=== PATIENT | female | born 1965 | race Caucasian/White ===

== ENCOUNTER → 2016-06-15 | Outpatient (CLI) | payer BC ==
--- NOTE | 2016-06-15 16:36 | Diagnostic Imaging Report ---
PROCEDURE: US Thyroid. TECHNIQUE: Multiple real-time grayscale images were obtained of the thyroid in various projections. INDICATION: Followup left thyroid nodule. COMPARISON: 01/21/2015. DISCUSSION: The thyroid gland is diffusely atrophied. The right thyroid measures 3.1 x 0.8 x 1.0 cm. The left thyroid measures 3.2 x 0.9 x 0.9 cm. A 7 mm ill-defined hyperechoic nodule within the left thyroid gland inferiorly is stable. Given long-term stability, nodule is likely benign. No new nodule is identified. No abnormal adjacent lymph nodes are identified. IMPRESSION: 1. Atrophied thyroid gland appears stable. Subcentimeter left thyroid nodule is also stable and therefore likely benign. Dictated by: Dictated on workstation # [id number]
== END ==
LOC: RAD 15:33
PROVIDERS: ATTEND Nurse Practitioner Family
DX: E04.1 Nontoxic single thyroid nodule (principal)
CPT/HCPCS: 76536

== ENCOUNTER → 2020-01-17 | Outpatient (CLI) | payer BC ==
--- NOTE | 2020-01-17 09:38 | Diagnostic Imaging Report ---
INDICATION: Liver disease. PROCEDURE: Ultrasound abdomen complete. TECHNIQUE: Multiple real-time grayscale images were obtained of the abdomen in various projections. The liver is enlarged at 20 cm. There is diffuse increased echogenicity throughout the liver consistent with hepatic steatosis. No discrete liver mass is detected. Portal vein is patent and shows normal direction of flow. Gallbladder is surgically absent. There is no biliary ductal dilatation. Pancreas is unremarkable. The spleen is normal in size at 11.2 cm. Aorta is nonaneurysmal. IVC is patent. The kidneys are without calculi or hydronephrosis. There is no ascites. IMPRESSION: 1. Hepatomegaly and hepatic steatosis. 2. Status post cholecystectomy. 3. No acute feature is detected. Dictated by: Dictated on workstation # [id number]
--- NOTE | 2020-01-17 09:41 | Diagnostic Imaging Report ---
PROCEDURE: US Thyroid. TECHNIQUE: Multiple real-time grayscale images were obtained of the thyroid in various projections. INDICATION: Thyroid nodule, follow-up. CORRELATION is made with prior thyroid ultrasound from 06/15/2016. FINDINGS: Right lobe of the thyroid measures 3.5 x 1.3 x 0.9 cm and the left lobe measures 3.3 x 0.9 x 0.8 cm. Isthmus is 3 mm in thickness. Thyroid is heterogeneous. There is a slightly hyperechoic nodule lower pole left lobe measuring 6 mm in size, stable. No other nodules are identified. IMPRESSION: Subcentimeter nodule, left lobe, stable when compared with examination from 06/15/2016. No dominant thyroid mass is detected. Dictated by: Dictated on workstation # [id number]
== END ==
LOC: RAD 07:54
PROVIDERS: ATTEND Nurse Practitioner Family
DX: E04.1 Nontoxic single thyroid nodule (principal); E05.30 Thyrotoxicosis from ectopic thyroid tissue without thyrotoxic crisis or storm; K76.0 Fatty (change of) liver, not elsewhere classified; Z90.49 Acquired absence of other specified parts of digestive tract
CPT/HCPCS: 76536; 76700

== ENCOUNTER → 2020-05-27 | Outpatient (CLI) | payer BC ==
--- NOTE | 2020-05-27 09:38 | Diagnostic Imaging Report ---
CLINICAL INDICATION: Patient is having bilateral arm and hand numbness. EXAM: MRI of the brain performed without IV contrast. Sequences include axial DWI, ADC map, axial T2, axial FLAIR, axial T1, axial gradient echo, and sagittal T1. COMPARISON: None. FINDINGS: There is no evidence of acute cerebral infarct, intracranial hemorrhage, or gross mass effect. The brain parenchymal volume appears appropriate for patient's age. There is a focal area of high T2 signal white matter change involving the right cerebral hemisphere which may related to chronic small vessel ischemic disease. There is normal lao-white matter distinction. There is no significant midline shift or herniation. The [place] vascular structures show no gross abnormality as visualized. The pituitary gland, sella, and suprasellar regions are unremarkable as visualized. There is no evidence of hydrocephalus. The basal cisterns are unremarkable. The skull, extracranial soft tissue, and orbits are unremarkable. The paranasal sinuses are unremarkable. Temporal bones show no significant abnormality. IMPRESSION: Unremarkable MRI of the brain with age-related brain parenchymal changes. Dictated by: Dictated on workstation # [id number]
--- NOTE | 2020-05-27 09:53 | Diagnostic Imaging Report ---
CLINICAL INDICATION: Patient is having bilateral arm and hand numbness. EXAM: MRI of the cervical spine performed without IV contrast. Sequences include sagittal T1, sagittal T2, sagittal stir, and axial T2. COMPARISON: None. FINDINGS: There is no acute cervical spine fracture or dislocation. There are Modic type I degenerative signal changes anteriorly at the C6-C7 level. There are degenerative spurs seen throughout the cervical spine and facet arthropathy. There is no significant paraspinal soft tissue abnormality. The visualized portions of the posterior fossa show no significant abnormality. There is localized encroachment upon the cervical cord seen at the C4-C5 disk space region due to disc herniation. There is no definite cord signal abnormality seen. C1-C2: There are degenerative spurs involving the atlantoodontoid interval anteriorly. There is no significant central canal narrowing. C2-C3: There is mild bilateral facet arthropathy. There is no significant central spinal canal or neuroforaminal narrowing. C3-C4: There is diffuse disk bulge with a small left paracentral disk protrusion/herniation component. There is at least mild to moderate right neuroforaminal narrowing. Mild to moderate central canal stenosis. There is mild left neuroforaminal narrowing. C4-C5: There is a diffuse disk bulge with a moderate sized left paracentral disk extrusion/herniation. There is mild to moderate loss of disk space height. There is severe central canal stenosis with significant encroachment upon the cervical cord. There is severe right neuroforaminal narrowing and at least moderate left neuroforaminal narrowing. C5-C6: There is a diffuse disk bulge with superimposed left paracentral/subarticular disk spur. There is moderate central canal stenosis. There is moderate left neuroforaminal narrowing and no significant right neuroforaminal narrowing. C6-C7: There is a diffuse disk bulge with superimposed right paracentral posterior disk herniation. There is mild to moderate central canal stenosis. There is no significant right neuroforaminal narrowing. There is mild to moderate left neuroforaminal narrowing. C7-T1: There are small bilateral perineural cysts seen with the largest one measuring 8 mm on the right. There is no significant central spinal canal or neuroforaminal narrowing. T1-T2: There is a diffuse disk bulge with uncinate spurs and posterior disk herniation. There is mild to moderate central canal stenosis. There is at least moderate right neuroforaminal narrowing and severe left neuroforaminal narrowing. T2-T3: There is a diffuse disk bulge with superimposed right paracentral disk herniation with moderate central canal stenosis. There is mild left neuroforaminal narrowing and moderate to severe right neuroforaminal narrowing. IMPRESSION: 1: There is severe multilevel cervical and visualized upper thoracic spine degenerative disease with diffuse disk bulges, disk herniations, and facet arthropathy. 2: There is a C4-C5 diffuse disk bulge with moderate sized left paracentral disk herniation which causes severe central canal stenosis and encroachment with deformity upon the cervical cord. There is no definite cord signal abnormality. There is severe right neuroforaminal narrowing and at least moderate left neuroforaminal narrowing. 3: There is moderate central canal stenosis at the C5-C6 level due to diffuse disk bulge and left paracentral/subarticular disk spur and facet arthropathy. 4: The remainder of the cervical spine degenerative changes are described above. Dictated by: Dictated on workstation # [id number]
== END ==
LOC: RAD 08:30
PROVIDERS: ATTEND Nurse Practitioner Family
DX: M47.812 Spondylosis without myelopathy or radiculopathy, cervical region (principal); M47.814 Spondylosis without myelopathy or radiculopathy, thoracic region; M50.221 Other cervical disc displacement at C4-C5 level; M51.24 Other intervertebral disc displacement, thoracic region; M51.34 Other intervertebral disc degeneration, thoracic region; M48.02 Spinal stenosis, cervical region; M48.04 Spinal stenosis, thoracic region; M71.38 Other bursal cyst, other site; G43.119 Migraine with aura, intractable, without status migrainosus
CPT/HCPCS: 70551; 72141

== ENCOUNTER → 2020-10-03 | Outpatient (CLI) | payer BC | LOC: RAD 15:00 | PROVIDERS: ATTEND Nurse Practitioner Family | DX: Z12.31 Encounter for screening mammogram for malignant neoplasm of breast (principal) | CPT/HCPCS: 77063; 77067 ==

== ENCOUNTER 2020-10-08 15:30 | Emergency (ER) | payer BC ==
[~2020-10-08] VITALS: Ht 152 cm; Wt 100.2 kg
--- NOTE | 2020-10-08 15:47 | ED Abdominal Pain ---
General Chief Complaint: Abdominal/GI Problems Stated Complaint: ABD PAIN Source of Information: Patient Exam Limitations: No Limitations History of Present Illness Date Seen by Provider: Oct 08, 2020 Time Seen by Provider: 15:47 Initial Comments This is a 55-year-old female who presents to the ER via POV with complaints of severe right upper quadrant pain that started this morning. States pain is 10/10, sharp/stabbing, and constant. Is worse with deep inspiration. Unrelieved by anything. Has mild nausea, no emesis. States that her primary care provider has been following her LFTs and told her that she has NAFLD. Her last AST was 65 and ALT was 75 on September 15. She denies fever, chills, cough, shortness of breath, chest pain. Allergies and Home Medications Allergies Coded Allergies: Penicillins (Verified Allergy, Unknown, 10/08/20) promethazine (Verified Allergy, Unknown, 10/08/20) Patient Home Medication List Home Medication List Reviewed: Yes Review of Systems Review of Systems Constitutional: no symptoms reported EENTM: No Symptoms Reported Respiratory: See HPI Cardiovascular: See HPI Gastrointestinal: See HPI Genitourinary: No Symptoms Reported Musculoskeletal: see HPI Skin: no symptoms reported Psychiatric/Neurological: No Symptoms Reported Endocrine: No Symptoms Reported Hematologic/Lymphatic: No Symptoms Reported Physical Exam Vital Signs Vital Signs - First Documented 10/08/20 15:40 Temp 36.2 Pulse 100 Resp 16 B/P (MAP) 146/85 (105) Pulse Ox 96 O2 Delivery Room Air Capillary Refill : Height/Weight/BMI Height: '" Weight: lbs. oz. kg; BMI Method: General Appearance: WD/WN, no apparent distress HEENT: PERRL/EOMI, normal ENT inspection; No scleral icterus (R), No scleral icterus (L) Neck: non-tender, full range of motion, supple, normal inspection Respiratory: chest non-tender, lungs clear, normal breath sounds, no respiratory distress, no accessory muscle use Cardiovascular: regular rate, rhythm, no edema, no murmur Gastrointestinal: normal bowel sounds, soft; No guarding; tenderness (RUQ), hepatomegaly Extremities: normal range of motion, normal inspection, no pedal edema Back: normal inspection, no CVA tenderness Neurologic/Psychiatric: no motor/sensory deficits, alert, normal mood/affect, o riented x 3 Skin: normal color, diaphoresis Focused Exam Lactate Level 10/08/20 16:38: Lactic Acid Level 2.32*H 10/08/20 19:22: Lactic Acid Level 1.13 Lactic Acid Level Laboratory Tests Test 10/08/20 16:38 10/08/20 19:22 Lactic Acid Level 2.32 MMOL/L (0.50-2.00) *H 1.13 MMOL/L (0.50-2.00) Progress/Results/Core Measures Results/Orders Lab Results Laboratory Tests Test 10/08/20 15:45 10/08/20 16:12 10/08/20 16:38 10/08/20 18:05 Range/Units White Blood Count 19.9 H 4.3-11.0 10^3/uL Red Blood Count 4.80 3.80-5.11 10^6/uL Hemoglobin 14.2 11.5-16.0 g/dL Hematocrit 44 35-52 % Mean Corpuscular Volume 92 80-99 fL Mean Corpuscular Hemoglobin 30 25-34 pg Mean Corpuscular Hemoglobin Concent 32 32-36 g/dL Red Cell Distribution Width 13.9 10.0-14.5 % Platelet Count 436 H 130-400 10^3/uL Mean Platelet Volume 10.7 9.0-12.2 fL Immature Granulocyte % (Auto) 0 % Neutrophils (%) (Auto) 38 L 42-75 % Lymphocytes (%) (Auto) 56 H 12-44 % Monocytes (%) (Auto) 4 0-12 % Eosinophils (%) (Auto) 1 0-10 % Basophils (%) (Auto) 1 0-10 % Neutrophils # (Auto) 7.6 1.8-7.8 10^3/uL Lymphocytes # (Auto) 11.2 H 1.0-4.0 10^3/uL Monocytes # (Auto) 0.7 0.0-1.0 10^3/uL Eosinophils # (Auto) 0.3 0.0-0.3 10^3/uL Basophils # (Auto) 0.1 0.0-0.1 10^3/uL Immature Granulocyte # (Auto) 0.1 0.0-0.1 10^3/uL Neutrophils % (Manual) 38 % Lymphocytes % (Manual) 52 % Monocytes % (Manual) 5 % Band Neutrophils 1 % Atypical Lymphocytes 2 % Reactive Lymphocytes 2 % Blood Morphology Comment NORMAL Sodium Level 140 135-145 MMOL/L Potassium Level 4.1 3.6-5.0 MMOL/L Chloride Level 102 98-107 MMOL/L Carbon Dioxide Level 23 21-32 MMOL/L Anion Gap 15 H 5-14 MMOL/L Blood Urea Nitrogen 15 7-18 MG/DL Creatinine 0.84 0.60-1.30 MG/DL Estimat Glomerular Filtration Rate > 60 BUN/Creatinine Ratio 18 Glucose Level 129 H 70-105 MG/DL Calcium Level 11.1 H 8.5-10.1 MG/DL Corrected Calcium 8.5-10.1 MG/DL Total Bilirubin 0.4 0.1-1.0 MG/DL Gamma Glutamyl Transpeptidase 253 H 0-36 U/L Aspartate Amino Transf (AST/SGOT) 168 H 5-34 U/L Alanine Aminotransferase (ALT/SGPT) 120 H 0-55 U/L Alkaline Phosphatase 125 40-136 U/L Lactate Dehydrogenase 261 H 125-220 U/L Total Creatine Kinase 47 29-168 U/L Creatine Kinase MB 0.8 <6.6 NG/ML Myoglobin 25.8 10.0-92.0 NG/ML Troponin I < 0.028 <0.028 NG/ML C-Reactive Protein High Sensitivity 0.61 H 0.00-0.50 MG/DL Total Protein 8.7 H 6.4-8.2 GM/DL Albumin 4.8 H 3.2-4.5 GM/DL Lipase 24 8-78 U/L Procalcitonin 0.26 H <0.10 NG/ML Prothrombin Time 13.5 12.2-14.7 SEC INR Comment 1.0 0.8-1.4 Lactic Acid Level 2.32 *H 0.50-2.00 MMOL/L Urine Color YELLOW Urine Clarity SL CLOUDY Urine pH 5.5 5-9 Urine Specific [place] <=1.005 1.016-1.022 Urine Protein TRACE H NEGATIVE Urine Glucose (UA) NEGATIVE NEGATIVE Urine Ketones NEGATIVE NEGATIVE Urine Nitrite NEGATIVE NEGATIVE Urine Bilirubin NEGATIVE NEGATIVE Urine Urobilinogen 0.2 < = 1.0 MG/DL Urine Leukocyte Esterase NEGATIVE NEGATIVE Urine RBC (Auto) NEGATIVE NEGATIVE Urine RBC NONE /HPF Urine WBC 10-25 H /HPF Urine Squamous Epithelial Cells 10-25 H /HPF Urine Crystals NONE /LPF Urine Bacteria TRACE /HPF Urine Casts NONE /LPF Urine Mucus NEGATIVE /LPF Urine Culture Indicated YES Test 10/08/20 19:22 Range/Units Lactic Acid Level 1.13 0.50-2.00 MMOL/L Micro Results Microbiology 10/08/20 Urine Culture - Final, Complete Mixed Bacterial Lisbet 10/08/20 Blood Culture - Preliminary, Resulted No growth 10/08/20 Blood Culture - Preliminary, Resulted No growth My Orders Orders - HINA MORELOS APRN Ua Culture If Indicated (10/08/20 15:36) Ed Iv/Invasive Line Start (10/08/20 15:36) Ondansetron Injection (Zofran Injectio (10/08/20 16:00) Fentanyl Inj (Sublimaze Injection) (10/08/20 16:00) Ketorolac Injection (Toradol Injection) (10/08/20 16:15) Cbc With Automated Diff (10/08/20 16:05) Comprehensive Metabolic Panel (10/08/20 16:05) Troponin I (10/08/20 16:05) Creatine Kinase (10/08/20 16:05) Creatine Kinase Mb (10/08/20 16:05) Myoglobin Serum (10/08/20 16:05) Gamma Glutamyl Transpeptidase (10/08/20 16:05) Protime With Inr (10/08/20 16:05) Ct Abdomen/Pelvis W (10/08/20 16:07) Manual Differential (10/08/20 15:45) Chest 1 View, Ap/Pa Only (10/08/20 16:18) Iohexol Injection (Omnipaque 350 Mg/Ml 1 (10/08/20 16:30) Received Contrast (Hold Metformin- Contr (10/08/20 16:30) Ns (Ivpb) (Sodium Chloride 0.9% Ivpb Bag (10/08/20 16:30) Lipase (10/08/20 16:27) Blood Culture (10/08/20 16:27) Lactic Acid Analyzer (10/08/20 16:27) Hs C Reactive Protein (10/08/20 16:53) Procalcitonin (Pct) (10/08/20 16:53) LDH (10/08/20 16:53) Ns Iv 1000 Ml (Sodium Chloride 0.9%) (10/08/20 17:00) Urine Culture (10/08/20 18:05) Medications Given in ED Vital Signs/I&O 10/08/20 10/08/20 15:40 19:43 Temp 36.2 Pulse 100 83 Resp 16 18 B/P (MAP) 146/85 (105) 116/64 (105) Pulse Ox 96 97 O2 Delivery Room Air Room Air Progress Progress Note : Progress Note Upon arrival patient appears to be in severe pain. Orders placed for fentanyl 50 mcg IV push and Zofran 4 mg IV push. Was able to have some relief of symptoms. However symptoms began to return shortly after, orders given for Toradol 30 mg IV push. States that she woke this morning with severe right upper quadrant pain that has persistently worsened through the day. Later stated that the pain does radiate up into the right side of her chest. However she is not currently experiencing the symptoms. States that she does have a history of NAFLD and her primary care provider is following this closely. She denies any new foods, new medications, trauma. Orders placed for CBC, CMP, liver panel, GGT, PT/INR, CK, cardiac work-up, chest x-ray, CT abdomen pelvis with contrast. Labs reviewed WBC19.9, hemoglobin-14.2, [id number], NEW743, QLU387, total bili0.4, BUN15, creatinine0.84, potassium 4.1, . Cardiac negative. Lactic acid2.32, DMU273, OSQ833, CRP0.61, procalcitonin0.26. Urine shows trace bacteria will, 10-25 WBCs. She is asymptomatic. Orders placed for a liter of normal saline. Chest x-ray negative for acute pathology. CT abdomen pelvis shows hepatic steatosis without any acute pathology. She was able to recall that she did start taking Zetia approximately 3 weeks ago. This could account for her elevation in LFTs, and sudden onset of symptoms. She does meet SIRS criteria, however procalcitonin and CRP are not indicative of severe infection. After receiving a liter of normal saline her lactic acid repeat was 1.13. Discuss admitting observation versus discharging home with close follow-up. States that she would like to discharge home and if she has any worsening symptoms she will return. Reports pain is now 1/10 and without nausea throughout remaining ED course. States she is feeling much improved. Discussed with her that her symptoms are likely related to her recent addition of Zetia. Recommended having her have close follow-up with her primary care provider to have her labs repeated next week. Additionally recommended referral for online advertising director due to progressive symptoms. Reviewed discharge plan of care and supportive treatment at home for NAFLD. Verbalized gratitude. She is agreeable with discharge plan of care. Discussed with her that if she has any increasing, worsening, new symptoms she can always return to the emergency department. Verbalized understanding. Diagnostic Imaging Diagonstic Imaging: Xray Plain Films/CT/US/NM/MRI: chest Comments NAME: SANDRA BRANCH [facility] REC#: [id number] PT STATUS: REG ER : 1965 PHYSICIAN: HINA MORELOS APRN ADMIT DATE: 10/08/20/ER Draft Date of Exam:10/08/20 CHEST 1 VIEW, AP/PA ONLY EXAMINATION: Chest 1 view. HISTORY: Pain with inspiration COMPARISON: None available. FINDINGS: Heart size is upper limits of normal. Pulmonary vasculature is normal. The lungs are clear without consolidation, pleural effusion, or pneumothorax. Degenerative changes of the thoracic spine. Osseous structures are otherwise intact. IMPRESSION: 1. No acute radiographic abnormality in the chest. 2. Mild cardiomegaly. Dictated on workstation # [id number] Dict: 10/08/20 1632 Trans: 10/08/20 1633 [facility] [id number] Interpreted by: TREVOR JUÁREZ DO Electronically signed by: Reviewed: Reviewed by Me Diagonstic Imaging: CT Plain Films/CT/US/NM/MRI: abdomen Comments [facility] [place] NAME: SANDRA BRANCH [facility] REC#: [id number] PT STATUS: REG ER : 1965 PHYSICIAN: HINA MORELOS APRN ADMIT DATE: 10/08/20/ER Signed Date of Exam:10/08/20 CT ABDOMEN/PELVIS W PROCEDURE: CT abdomen and pelvis with contrast. TECHNIQUE: Multiple contiguous axial images were obtained through the abdomen and pelvis after administration of intravenous contrast. Auto Exposure Controls were utilized during the CT exam to meet ALARA standards for radiation dose reduction. All CT scans use one or more of the following dose optimizing techniques: automated exposure control, MA and/or KvP adjustment based on patient size and exam type or iterative reconstruction. INDICATION: Right upper quadrant abdominal pain. There is coronary atherosclerosis. Lungs are clear. Some fatty infiltration of the liver. The gallbladder is surgically absent. Portal vein is patent. Common duct is not dilated. The pancreas appears normal. Spleen appears normal. Adrenals appear normal. Kidneys appear normal. There is some calcific atherosclerosis of the aorta but no aneurysm. The appendix appears to be surgically absent. Small bowel is not dilated. There are some scattered colonic diverticuli. There is no evidence of diverticulitis. Uterus appears normal. Adnexa are unremarkable. There is no retroperitoneal free air or free fluid. Urinary bladder is decompressed. IMPRESSION: Mild hepatic steatosis. Postoperative changes from cholecystectomy and appendectomy. Uncomplicated colonic diverticulosis. No acute abnormality is seen. Dictated by: Dictated on workstation # [id number] Dict: 10/08/20 1721 Trans: 10/08/201751 [facility] [id number] Interpreted by: ESTHER JUÁREZ MD Electronically signed by: ESTHER JUÁREZ MD 10/08/20 175 Reviewed: Reviewed by Me Departure Impression Primary Impression: Elevated liver function tests Additional Impression: Adverse reaction to antihyperlipidemic drug Disposition: 01 HOME, SELF-CARE Condition: Improved Departure-Patient Inst. Decision time for Depature: 18:06 Referrals: SHANON LO MD (PCP) Primary Care Physician QI HINES APRN (Family) Primary Care Physician Patient Instructions: Liver Function Test Add. Discharge Instructions: Plan: 1. Stop taking your Zetia as this can cause elevation in your liver function test. 2. Recommend hepatology referral. Discuss this with your primary care provider. Follow up next week for repeat CBC and CMP. 3. Return to ER for any new, concerning, or worsening symptoms. 4. See handout for diet and exercise recommendations. All discharge instructions reviewed with patient and/or family. Voiced understanding. Copy Copies To 1: SHANON LO MD, STORMY D APRN Oct 08, 2020 15:47
[2020-10-08] MEDS ORDERED: ONDANSETRON 4 MG/2 ML (SDV) Z0FRAN IVP ONE (16:00)
[2020-10-08] MEDS ORDERED: fentaNYL INJ 100 MCG/2 ML AMP IVP ONE (16:00)
[2020-10-08 16:14] LABS: BASOPHILS # (AUTO) 0.1 10^3/uL (0.0-0.1); BASOPHILS % (AUTO) 1 % (0-10); EOSINOPHILS # (AUTO) 0.3 10^3/uL (0.0-0.3); EOSINOPHILS % (AUTO) 1 % (0-10); HEMATOCRIT 44 % (35-52); HEMOGLOBIN 14.2 g/dL (11.5-16.0); LYMPHOCYTES # (AUTO) 11.2 10^3/uL (1.0-4.0); LYMPHOCYTES % (AUTO) 56 % (12-44); MEAN CORPUSCULAR HEMOGLOBIN 30 pg (25-34); MEAN CORPUSCULAR HGB CONC 32 g/dL (32-36); MEAN CORPUSCULAR VOLUME 92 fL (80-99); MEAN PLATELET VOLUME 10.7 fL (9.0-12.2); MONOCYTES # (AUTO) 0.7 10^3/uL (0.0-1.0); MONOCYTES % (AUTO) 4 % (0-12); NEUTROPHILS # (AUTO) 7.6 10^3/uL (1.8-7.8); NEUTROPHILS % (AUTO) 38 % (42-75); PLATELET COUNT 436 10^3/uL (130-400); WHITE BLOOD COUNT 19.9 10^3/uL (4.3-11.0)
[2020-10-08 16:15] LABS: ALBUMIN 4.8 GM/DL (3.2-4.5)
[2020-10-08] MEDS ORDERED: KETOROLAC 30 MG/ML VIAL IVP ONE (16:15)
[2020-10-08 16:16] LABS: CHLORIDE 102 MMOL/L (98-107); POTASSIUM 4.1 MMOL/L (3.6-5.0); SODIUM 140 MMOL/L (135-145)
[2020-10-08 16:17] LABS: CALCIUM 11.1 MG/DL (8.5-10.1)
[2020-10-08 16:18] LABS: GLUCOSE 129 MG/DL (70-105); TOTAL PROTEIN 8.7 GM/DL (6.4-8.2)
[2020-10-08 16:19] LABS: CARBON DIOXIDE 23 MMOL/L (21-32)
[2020-10-08 16:20] LABS: BILIRUBIN,TOTAL 0.4 MG/DL (0.1-1.0)
[2020-10-08 16:21] LABS: ALKALINE PHOSPHATASE 125 U/L (40-136)
[2020-10-08 16:22] LABS: CREATININE SERUM 0.84 MG/DL (0.60-1.30); GFR ESTIMATED > 60
[2020-10-08 16:23] LABS: BUN/CREATININE RATIO 18
[2020-10-08 16:25] LABS: ALANINE AMINOTRANSFERASE 120 U/L (0-55); CREATINE KINASE 47 U/L (29-168)
[2020-10-08 16:27] LABS: PROTHROMBIN TIME PATIENT 13.5 SEC (12.2-14.7)
[2020-10-08] MEDS ORDERED: HOLD METFORMIN - RECEIVED CONTRAST 20 ML VIAL IV SCH (16:30)
[2020-10-08] MEDS ORDERED: IOHEXOL 350 MG/ML 100 ML (OMNIPAQUE 350) VIAL IV ONE (16:30)
[2020-10-08] MEDS ORDERED: NS 100 ML (IVPB) BAG IV ONE (16:30)
[2020-10-08 16:31] LABS: CREATINE KINASE MB 0.8 NG/ML (<6.6)
--- NOTE | 2020-10-08 16:34 | Diagnostic Imaging Report ---
EXAMINATION: Chest 1 view. HISTORY: Pain with inspiration COMPARISON: None available. FINDINGS: Heart size is upper limits of normal. Pulmonary vasculature is normal. The lungs are clear without consolidation, pleural effusion, or pneumothorax. Degenerative changes of the thoracic spine. Osseous structures are otherwise intact. IMPRESSION: 1. No acute radiographic abnormality in the chest. 2. Mild cardiomegaly. Dictated by: Dictated on workstation # [id number]
[2020-10-08 16:37] LABS: ATYPICAL LYMPHOCYTES 2 %; BAND NEUTROPHILS 1 %; LYMPHOCYTES % (MANUAL) 52 %; MONOCYTES % (MANUAL) 5 %; NEUTROPHILS % (MANUAL) 38 %; RBC MORPH NORMAL; REACTIVE LYMPHOCYTES 2 %
[2020-10-08] MEDS ORDERED: NS IV 1000 ML 1,000 ML IV ONE (17:00)
--- NOTE | 2020-10-08 17:44 | Diagnostic Imaging Report ---
PROCEDURE: CT abdomen and pelvis with contrast. TECHNIQUE: Multiple contiguous axial images were obtained through the abdomen and pelvis after administration of intravenous contrast. Auto Exposure Controls were utilized during the CT exam to meet ALARA standards for radiation dose reduction. All CT scans use one or more of the following dose optimizing techniques: automated exposure control, MA and/or KvP adjustment based on patient size and exam type or iterative reconstruction. INDICATION: Right upper quadrant abdominal pain. There is coronary atherosclerosis. Lungs are clear. Some fatty infiltration of the liver. The gallbladder is surgically absent. Portal vein is patent. Common duct is not dilated. The pancreas appears normal. Spleen appears normal. Adrenals appear normal. Kidneys appear normal. There is some calcific atherosclerosis of the aorta but no aneurysm. The appendix appears to be surgically absent. Small bowel is not dilated. There are some scattered colonic diverticuli. There is no evidence of diverticulitis. Uterus appears normal. Adnexa are unremarkable. There is no retroperitoneal free air or free fluid. Urinary bladder is decompressed. IMPRESSION: Mild hepatic steatosis. Postoperative changes from cholecystectomy and appendectomy. Uncomplicated colonic diverticulosis. No acute abnormality is seen. Dictated by: Dictated on workstation # [id number]
[2020-10-08 18:14] LABS: BILIRUBIN,URINE NEGATIVE (NEGATIVE); CLARITY,URINE SL CLOUDY; COLOR,URINE YELLOW; GLUCOSE, URINE (UA) NEGATIVE (NEGATIVE); KETONES,URINE NEGATIVE (NEGATIVE); LEUKOCYTE ESTERASE ,URINE NEGATIVE (NEGATIVE); NITRITE,URINE NEGATIVE (NEGATIVE); PH,URINE 5.5 (5-9); PROTEIN,URINE TRACE (NEGATIVE)
[2020-10-08 18:20] LABS: BACTERIA,URINE TRACE /HPF
[2020-10-08 19:43] VITALS: BP 116/64
== END 2020-10-08 19:45 | disposition home or self-care (01) ==
LOC: EDUNIT# 15:30 → ER 15:31
DX: R79.89 Other specified abnormal findings of blood chemistry (principal); T46.6X5A Adverse effect of antihyperlipidemic and antiarteriosclerotic drugs, initial encounter
CPT/HCPCS: 36415; 71045; 74177; 80053; 81000; 82550; 82553; 82977; 83605; 83615; 83690; 83874; 84145; 84484; 85007; 85027; 85610; 86141; 87040; 87088

== ENCOUNTER 2021-01-26 10:30 | Outpatient (RCR) | payer BC | END 2021-03-24 15:10 | disposition home or self-care (01) | PROVIDERS: ATTEND Nurse Practitioner Family | DX: G56.03 Carpal tunnel syndrome, bilateral upper limbs (principal); G60.9 Hereditary and idiopathic neuropathy, unspecified ==

== ENCOUNTER 2021-02-03 11:53 | Emergency (ER) | payer BC ==
[~2021-02-03] VITALS: Ht 152 cm; Wt 97.9 kg
[2021-02-03 12:12] LABS: BASOPHILS # (AUTO) 0.1 10^3/uL (0.0-0.1); BASOPHILS % (AUTO) 1 % (0-10); EOSINOPHILS # (AUTO) 0.2 10^3/uL (0.0-0.3); EOSINOPHILS % (AUTO) 2 % (0-10); HEMATOCRIT 37 % (35-52); HEMOGLOBIN 11.7 g/dL (11.5-16.0); LYMPHOCYTES % (AUTO) 52 % (12-44); MEAN CORPUSCULAR HEMOGLOBIN 29 pg (25-34); MEAN CORPUSCULAR HGB CONC 32 g/dL (32-36); MEAN CORPUSCULAR VOLUME 91 fL (80-99); MEAN PLATELET VOLUME 10.2 fL (9.0-12.2); MONOCYTES # (AUTO) 0.4 10^3/uL (0.0-1.0); MONOCYTES % (AUTO) 4 % (0-12); NEUTROPHILS # (AUTO) 3.9 10^3/uL (1.8-7.8); NEUTROPHILS % (AUTO) 41 % (42-75); PLATELET COUNT 245 10^3/uL (130-400); WHITE BLOOD COUNT 9.5 10^3/uL (4.3-11.0)
[2021-02-03] MEDS ORDERED: D5 1/2 NS 1000 ML IV SOLUTION 1,000 ML IV ONE (12:15)
[2021-02-03 12:19] LABS: ALBUMIN 4.1 GM/DL (3.2-4.5)
[2021-02-03] MEDS ORDERED: MECLIZINE 25 MG (ANTIVERT) TAB PO STA (12:20)
[2021-02-03 12:21] LABS: CALCIUM 10.2 MG/DL (8.5-10.1)
[2021-02-03 12:22] LABS: TOTAL PROTEIN 7.1 GM/DL (6.4-8.2)
[2021-02-03 12:24] LABS: BILIRUBIN,TOTAL 0.2 MG/DL (0.1-1.0)
[2021-02-03 12:26] LABS: CREATININE SERUM 0.74 MG/DL (0.60-1.30)
--- NOTE | 2021-02-03 12:59 | ED General ---
General Chief Complaint: Dizziness/Syncope Stated Complaint: LIGHTHEADED,WEAKNESS Nursing Triage Note: PT PRESENTS TO ED VIA EMS FROM [facility] IN [place] WHERE SHE WAS GETTING A BLOOD DRAW AND HAD AN EPISODE OF LIGHTHEADEDNESS/DIZZINESS. History of Present Illness Date Seen by Provider: Feb 03, 2021 Time Seen by Provider: 11:55 Initial Comments 55 year old female brought by EMS for vaso-vagal response at [facility] while having her blood drawn. Patient had been NPO since last evening and became weak, dizzy, and pale. She did not faint. She is being worked up for chronic peripheral neuropathy, dizziness and weakness. She has been diagnosed with idiopathic neuropathy and fibromyalgia, taking Prozac and Neurontin for this whi ch makes her vertigo worse. She was attempting to see a neurologist at [facility] on 01/30/2021, she became febrile and hypotensive in the clinic and was sent to the emergency department before seeing the specialist. She was treated with IV fluids and antibiotics for UTI and released to home. She is on Metformin, but has not been diagnosed diabetic. Strong family history of DM. Accucheck on arrival 93. The clinic did not have anything for her to eat or drink. She reports feeling weak and trace nausea, denies need for medicine. She denies chest pain or SOA. Reviewed extensive records from [facility], sent by PCP. Timing/Duration: 1-3 Hours Associated Systoms: No Chest Pain, No Cough, No Diaphoresis, No Fever/Chills, No Headaches; Malaise, Nausea/Vomiting; No Seizure, No Shortness of Air, No Syncope; Weakness Allergies and Home Medications Allergies Coded Allergies: Penicillins (Verified Allergy, Unknown, 10/08/20) promethazine (Verified Allergy, Unknown, 10/08/20) Patient Home Medication List Home Medication List Reviewed: Yes Review of Systems Review of Systems Constitutional: see HPI, dizziness, weakness EENTM: see HPI, no symptoms reported Respiratory: no symptoms reported, see HPI Cardiovascular: no symptoms reported, see HPI; No chest pain Gastrointestinal: no symptoms reported, see HPI; No constipation, No diarrhea; nausea (trace); No vomiting Genitourinary: no symptoms reported, see HPI Musculoskeletal: no symptoms reported, see HPI Skin: no symptoms reported, see HPI All Other Systems Reviewed Negative Unless Noted: Yes Past Hpgowhr-Bbfpxp-Xhhchl Hx Patient Social History Tobacco Use?: No Substance use?: No Alcohol Use?: No Pt feels they are or have been: No Immunizations Up To Date First/Initial COVID19 Vaccinat: july 31 COVID19 Vaccine [employer]: bVisual Past Medical History Surgery/Hospitalization HX: pmh: dm2, htn, high chol, liver, vertigo, neuropathy, fibro, anemia, asthma sx: gallbladder, appy, tubal. Surgeries: Yes Gallbladder Respiratory: No Cardiac: No Neurological: No Gastrointestinal: Yes ("liver issues") Endocrine: No HEENT: No Cancer: No Psychosocial: No Integumentary: No Family Medical History Reviewed Nursing Family Hx Physical Exam Vital Signs Vital Signs - First Documented 02/03/21 11:55 Temp 36.4 Pulse 70 Resp 20 B/P (MAP) 127/85 (99) Pulse Ox 98 Capillary Refill : Less Than 3 Seconds Height, Weight, BMI Height: '" Weight: lbs. oz. kg; 42.00 BMI Method: General Appearance: No Apparent Distress, WD/WN Eyes: Bilateral Eye Normal Inspection, Bilateral Eye PERRL, Bilateral Eye EOMI HEENT: PERRL/EOMI, TMs Normal, Normal ENT Inspection, Pharynx Normal Neck: Full Range of Motion, Normal Inspection, Non Tender, Supple Respiratory: Chest Non Tender, Lungs Clear, Normal Breath Sounds Cardiovascular: Regular Rate, Rhythm, No Edema, No Murmur, Normal Peripheral Pulses Gastrointestinal: Normal Bowel Sounds, Non Tender, Soft Back: Normal Inspection, No CVA Tenderness, No Vertebral Tenderness Extremity: Normal Capillary Refill, Normal Inspection, Normal Range of Motion, Non Tender, No Calf Tenderness, No Pedal Edema Neurologic/Psychiatric: Alert, Oriented x3, No Motor/Sensory Deficits, Normal Mood/Affect Skin: Normal Color, Warm/Dry Progress/Results/Core Measures Suspected Sepsis SIRS Temperature: Pulse: 70 Respiratory Rate: 20 Laboratory Tests 02/03/21 12:02: White Blood Count 9.5 Blood Pressure 127 /85 Mean: 99 Laboratory Tests 02/03/21 12:02: Creatinine 0.74, Platelet Count 245, Total Bilirubin 0.2 Results/Orders Lab Results Laboratory Tests Test 02/03/21 12:02 02/03/21 12:09 02/03/21 13:28 Range/Units White Blood Count 9.5 4.3-11.0 10^3/uL Red Blood Count 4.09 3.80-5.11 10^6/uL Hemoglobin 11.7 11.5-16.0 g/dL Hematocrit 37 35-52 % Mean Corpuscular Volume 91 80-99 fL Mean Corpuscular Hemoglobin 29 25-34 pg Mean Corpuscular Hemoglobin Concent 32 32-36 g/dL Red Cell Distribution Width 13.3 10.0-14.5 % Platelet Count 245 130-400 10^3/uL Mean Platelet Volume 10.2 9.0-12.2 fL Immature Granulocyte % (Auto) 0 % Neutrophils (%) (Auto) 41 L 42-75 % Lymphocytes (%) (Auto) 52 H 12-44 % Monocytes (%) (Auto) 4 0-12 % Eosinophils (%) (Auto) 2 0-10 % Basophils (%) (Auto) 1 0-10 % Neutrophils # (Auto) 3.9 1.8-7.8 10^3/uL Lymphocytes # (Auto) 5.0 H 1.0-4.0 10^3/uL Monocytes # (Auto) 0.4 0.0-1.0 10^3/uL Eosinophils # (Auto) 0.2 0.0-0.3 10^3/uL Basophils # (Auto) 0.1 0.0-0.1 10^3/uL Immature Granulocyte # (Auto) 0.0 0.0-0.1 10^3/uL Sodium Level 141 135-145 MMOL/L Potassium Level 4.0 3.6-5.0 MMOL/L Chloride Level 103 98-107 MMOL/L Carbon Dioxide Level 25 21-32 MMOL/L Anion Gap 13 5-14 MMOL/L Blood Urea Nitrogen 12 7-18 MG/DL Creatinine 0.74 0.60-1.30 MG/DL Estimat Glomerular Filtration Rate 81 BUN/Creatinine Ratio 16 Glucose Level 90 70-105 MG/DL Calcium Level 10.2 H 8.5-10.1 MG/DL Corrected Calcium 10.1 8.5-10.1 MG/DL Total Bilirubin 0.2 0.1-1.0 MG/DL Aspartate Amino Transf (AST/SGOT) 51 H 5-34 U/L Alanine Aminotransferase (ALT/SGPT) 51 0-55 U/L Alkaline Phosphatase 95 40-136 U/L Total Protein 7.1 6.4-8.2 GM/DL Albumin 4.1 3.2-4.5 GM/DL Glucometer 93 70-110 MG/DL Urine Color YELLOW Urine Clarity CLEAR Urine pH 7.0 5-9 Urine Specific [place] 1.015 L 1.016-1.022 Urine Protein NEGATIVE NEGATIVE Urine Glucose (UA) NEGATIVE NEGATIVE Urine Ketones NEGATIVE NEGATIVE Urine Nitrite NEGATIVE NEGATIVE Urine Bilirubin NEGATIVE NEGATIVE Urine Urobilinogen 0.2 < = 1.0 MG/DL Urine Leukocyte Esterase TRACE H NEGATIVE Urine RBC (Auto) NEGATIVE NEGATIVE Urine RBC NONE /HPF Urine WBC 0-2 /HPF Urine Squamous Epithelial Cells 0-2 /HPF Urine Crystals NONE /LPF Urine Bacteria NEGATIVE /HPF Urine Casts NONE /LPF Urine Mucus NEGATIVE /LPF Urine Culture Indicated NO My Orders Orders - [facility] Cbc With Automated Diff (02/03/21 12:03) Comprehensive Metabolic Panel (02/03/21 12:03) Accucheck Stat ONCE (02/03/21 12:03) Ed Iv/Invasive Line Start (02/03/21 12:03) D5 1/2 Ns 1000 Ml Iv Solution (Dextrose (02/03/21 12:15) Ua Culture If Indicated (02/03/21 12:20) Meclizine Tablet (Antivert Tablet) (02/03/21 12:20) Medications Given in ED Current Medications Medications Dose Ordered Sig/Elie Route Start Time Stop Time Status Last Admin Dose Admin Dextrose/Sodium Chloride 1,000 ml @ 0 mls/hr ONCE ONCE IV 02/03/21 12:15 02/03/21 12:16 DC 02/03/21 12:31 0 MLS/HR Vital Signs/I&O 02/03/21 02/03/21 11:55 15:00 Temp 36.4 36.4 Pulse 70 74 Resp 20 20 B/P (MAP) 127/85 (99) 125/77 Pulse Ox 98 98 Capillary Refill : Less Than 3 Seconds Blood Pressure Mean: 99 Point of Care Testing Finger Stick Blood Glucose: 93 Blood Glucose Action Taken: rn notified Progress Note : Time: 11:55 Progress Note Patient seen and evaluated, will obtain labs, will give D5 half-normal saline 1 L per IV. Meclizine 25 mg orally for vertigo. 1230 orthostatic b/p checked, no significant change. 1315 pt ambulated to commode, no vertigo or weakness. 1415 patient reports improvement in symptoms. Daughter present to drive her home. Discharge instructions and return precautions reviewed with the patient. All questions answered. Departure Impression Primary Impression: Vaso vagal episode Additional Impressions: Idiopathic neuropathy Fibromyalgia Disposition: HOME, SELF-CARE Condition: Stable Departure-Patient Inst. Decision time for Depature: 14:15 Referrals: SHANON LO MD (PCP/Family) Primary Care Physician Patient Instructions: Vasovagal Response (DC) Add. Discharge Instructions: Activity as tolerated, change positions slowly. Eat small frequent meals and increase water intake. Follow-up with your primary care provider if symptoms are not improving or worsen. Return to the emergency department for new, urgent healthcare needs. All discharge instructions reviewed with patient and/or family. Voiced understanding. Copy Copies To 1: SHANON LO MD, AMY ARNP Feb 03, 2021 12:59
[2021-02-03 13:35] LABS: BILIRUBIN,URINE NEGATIVE (NEGATIVE); CLARITY,URINE CLEAR; COLOR,URINE YELLOW; GLUCOSE, URINE (UA) NEGATIVE (NEGATIVE); KETONES,URINE NEGATIVE (NEGATIVE); LEUKOCYTE ESTERASE ,URINE TRACE (NEGATIVE); NITRITE,URINE NEGATIVE (NEGATIVE); PROTEIN,URINE NEGATIVE (NEGATIVE)
[2021-02-03 13:42] LABS: BACTERIA,URINE NEGATIVE /HPF; SQUAMOUS EPITHELIAL CELL,UR 0-2 /HPF; WBC,URINE 0-2 /HPF
[2021-02-03 15:00] VITALS: BP 125/77
== END 2021-02-03 15:00 | disposition home or self-care (01) ==
LOC: ER 11:53
DX: R55 Syncope and collapse (principal); G60.9 Hereditary and idiopathic neuropathy, unspecified; M79.7 Fibromyalgia; I10 Essential (primary) hypertension
CPT/HCPCS: 36415; 80053; 81000; 82947; 85025

== ENCOUNTER → 2021-03-02 | Outpatient (CLI) | payer BC | LOC: LABNPT 08:58 | DX: Z20.822 Contact with and (suspected) exposure to COVID-19 (principal) | CPT/HCPCS: 87635 ==